=== PATIENT | female | born 1995 | race Caucasian/White ===

== ENCOUNTER 2022-12-15 10:00 | Inpatient (IN) | payer OTHER ==
[2022-12-15 11:29] VITALS: BMI 48.0
[2022-12-15] MEDS ORDERED: FENTANYL CITRATE/PF 50 MCG/ML VIAL ONE (12:19)
[2022-12-15] MEDS ORDERED: morphine SULFATE/PF 1 MG/2 ML (2cc Syringe - QUVA) ONE (12:19)
[2022-12-15] MEDS ORDERED: KETOROLAC TROMETHAMINE 30 MG/1 ML VIAL ONE (12:49)
[2022-12-15] MEDS ORDERED: ceFAZolin SODIUM 1 GM VIAL ONE (12:49)
[2022-12-15] MEDS ORDERED: ONDANSETRON 4 MG/2 ML VIAL ONE (12:49)
[2022-12-15] MEDS ORDERED: OXYTOCIN 10 UNITS/ML VIAL ONE (12:49)
[2022-12-15] MEDS ORDERED: OXYTOCIN 20 UNITS in 0.9% NS 20 UNIT/1,000 ML INFUS.BAG IV ONE (13:34)
[2022-12-15] MEDS ORDERED: ACETAMINOPHEN INJECTION 100 ML IVPB ONE (13:37)
[2022-12-15] MEDS ORDERED: oxyCODONE HCL 5 MG TABLET PO PRN (13:38)
[2022-12-15] MEDS ORDERED: ACETAMINOPHEN 1000 MG/100 ML BAG IVPB PRN (13:38)
[2022-12-15] MEDS ORDERED: IBUPROFEN 800 MG/8 ML IJ IVPB PRN (13:38)
[2022-12-15] MEDS ORDERED: ACETAMINOPHEN 325 MG TABLET (FP) PO PRN (13:38)
[2022-12-15] MEDS ORDERED: ONDANSETRON 4 MG/2 ML VIAL IVPB PRN (13:38)
[2022-12-15] MEDS ORDERED: morphine SULFATE/PF 1 MG/2 ML (2cc Syringe - QUVA) SPIN ONE (13:39)
[2022-12-15] MEDS ORDERED: ACETAMINOPHEN 1000 MG/100 ML BAG IVPB ONE (13:41)
[2022-12-15] MEDS ORDERED: OXYTOCIN 20 UNITS in 0.9% NS 20 UNIT/1,000 ML INFUS.BAG IV SCH (13:45)
[2022-12-15] MEDS ORDERED: ELECTROLYTE-148 SOLN 500 ML IV ONE (15:38)
[2022-12-15] MEDS ORDERED: CITRIC ACID/SODIUM CITRATE 30 ML UNIT-DOSE CUP PO ONE (15:38)
[2022-12-15] MEDS: CEFAZOLIN 2 GM in DEXTROSE 5%-WATER - 50 ML IVPB SCH (17:26)
[2022-12-15] MEDS: IBUPROFEN 600 MG TABLET (FP) PO PRN (21:25)
[2022-12-15] MEDS: SIMETHICONE 80 MG TAB.CHEW (FP) PO PRN (21:26)
[2022-12-16] MEDS: CEFAZOLIN 2 GM in DEXTROSE 5%-WATER - 50 ML IVPB SCH (02:13)
[2022-12-16 07:01] LABS: BASO % 0.4 % (0-2.0); EOS % 1.5 % (0-4.5); HEMATOCRIT 30.5 % (32.4-45.2); HEMOGLOBIN 10.7 GM/dL (10.7-15.3); LYMPH % 20.7 % (8-40); MCHC 35.1 g/dl (32.0-36.0); MEAN CELL VOLUME 76.9 fl (80-96); MEAN PLT VOLUME 8.2 fl (7.5-11.1); MONO % 6.2 % (3.8-10.2); NEUT % 71.2 % (42.8-82.8); PLATELET COUNT 212 10^3/uL (134-434); RBC 3.97 M/mm3 (3.60-5.2); RDW 14.9 % (11.6-15.6); WHITE BLOOD COUNT 12.4 K/mm3 (4.0-10.0)
[2022-12-16] MEDS: ENOXAPARIN NA (PORCINE) 40 MG/0.4 ML DISP.SYRIN SQ SCH (10:08)
[2022-12-16] MEDS: IBUPROFEN 600 MG TABLET (FP) PO PRN ×3 (10:08→21:01)
[2022-12-16] MEDS: SIMETHICONE 80 MG TAB.CHEW (FP) PO PRN ×2 (10:08→21:01)
[2022-12-16] MEDS: PRENATAL VITAMINS W/ FOLIC ACID TABLET (FP) PO SCH (10:08)
[2022-12-16] MEDS ORDERED: BISACODYL 10 MG SUPP.RECT RC PRN (13:39)
[2022-12-16] MEDS: SENNOSIDES/DOCUSATE COMBO (SENNA PLUS) TABLET (UD) PO PRN (21:39)
[2022-12-17] MEDS: IBUPROFEN 600 MG TABLET (FP) PO PRN ×4 (05:07→21:58)
[2022-12-17] MEDS: SIMETHICONE 80 MG TAB.CHEW (FP) PO PRN ×4 (05:07→21:57)
[2022-12-17] MEDS: PRENATAL VITAMINS W/ FOLIC ACID TABLET (FP) PO SCH (10:52)
[2022-12-17] MEDS: ENOXAPARIN NA (PORCINE) 40 MG/0.4 ML DISP.SYRIN SQ SCH (10:52)
[2022-12-17] MEDS: SENNOSIDES/DOCUSATE COMBO (SENNA PLUS) TABLET (UD) PO PRN (21:58)
[2022-12-18] MEDS: IBUPROFEN 600 MG TABLET (FP) PO PRN (04:56)
[2022-12-18] MEDS ORDERED: ACETAMINOPHEN 325 MG TABLET (FP) PO PRN (07:47)
[2022-12-18] MEDS ORDERED: oxyCODONE HCL 5 MG TABLET PO PRN (07:47)
[2022-12-18] MEDS: PRENATAL VITAMINS W/ FOLIC ACID TABLET (FP) PO SCH (11:20)
[2022-12-18] MEDS: ENOXAPARIN NA (PORCINE) 40 MG/0.4 ML DISP.SYRIN SQ SCH (11:20)
[2022-12-18 13:19] VITALS: BP 120/70; PULSE 92; RESP 17; TEMP 98.2
== END 2022-12-18 16:30 | disposition home or self-care (01) | DRG 540 ==
LOC: JLDR 10:00 → J3W 14:45
PROVIDERS: ADMIT Specialist; ATTEND Specialist
PROC: 10D00Z1 Extraction of Products of Conception, Low, Open Approach (ICD-10-PCS; principal; 2022-12-15)
DX: O32.2XX0 Maternal care for transverse and oblique lie, not applicable or unspecified (principal); O41.03X0 Oligohydramnios, third trimester, not applicable or unspecified; O99.213 Obesity complicating pregnancy, third trimester; Z3A.39 39 weeks gestation of pregnancy; Z37.0 Single live birth
CPT/HCPCS: 36415; 80053; 85025; 85027; 85610; 85730; 86780; 86850; 86900; 86901; 87389; 88307-TC; C9803-CS; U0003; U0005

== ENCOUNTER 2023-09-09 21:10 | Emergency (ER) | payer OTHER ==
[2023-09-09 21:16] VITALS: TEMP 98.2; BMI 40.6
[2023-09-09 21:52] LABS: HCG,QUALITATIVE URINE Positive
[2023-09-09] MEDS: ACETAMINOPHEN 1000 MG/100 ML BAG IVPB ONE (21:54)
[2023-09-09] MEDS ORDERED: ACETAMINOPHEN INJECTION 100 ML IVPB ONE (21:57)
[2023-09-09 22:25] LABS: URINE APPEARANCE TURBID; URINE COLOR RED
[2023-09-09 22:28] LABS: URINE RBC >200 /uL (0-23.9); URINE WBC 0-2 /uL (0-25.8)
[2023-09-09 22:29] LABS: EPI CELLS 0-5 /uL (0-25.1); URINE BACTERIA 0-5 /uL (0-1359)
[2023-09-09 22:44] LABS: BASO % 0.7 % (0-2.0); EOS % 3.1 % (0-4.5); HEMATOCRIT 39.1 % (32.4-45.2); LYMPH % 38.6 % (8-40); MCH 25.6 pg (25.7-33.7); MCHC 33.3 g/dl (32.0-36.0); MEAN CELL VOLUME 76.7 fl (80-96); MEAN PLT VOLUME 8.4 fl (7.5-11.1); MONO % 5.4 % (3.8-10.2); NEUT % 52.2 % (42.8-82.8); PLATELET COUNT 257 10^3/uL (134-434); RBC 5.09 M/mm3 (3.60-5.2); RDW 14.7 % (11.6-15.6); WHITE BLOOD COUNT 7.7 K/mm3 (4.0-10.0)
[2023-09-09 23:12] LABS: POTASSIUM 4.1 mmol/L (3.5-5.1)
[2023-09-09 23:14] LABS: ALBUMIN 3.2 g/dl (3.4-5.0); BLOOD UREA NITROGEN 9.8 mg/dL (7-18); CALCIUM 8.7 mg/dL (8.5-10.1)
[2023-09-09 23:17] LABS: CREATININE 0.7 mg/dL (0.55-1.3)
[2023-09-09 23:19] LABS: BILIRUBIN,TOTAL 0.3 mg/dL (0.2-1)
[2023-09-10] MEDS ORDERED: KETOROLAC TROMETHAMINE 15 MG/ML VIAL ONE (01:21)
[2023-09-10] MEDS: KETOROLAC TROMETHAMINE 15 MG/ML VIAL IVPUSH ONE (01:37)
[2023-09-10 01:46] VITALS: BP 114/72; PULSE 98; RESP 18
[2023-09-10] MEDS: METHYLERGONOVINE MALEATE 0.2 MG/1 ML AMP IM ONE (02:22)
== END 2023-09-10 03:40 | disposition home or self-care (01) ==
LOC: JER 21:10
PROC: 3E033NZ Introduction of Analgesics, Hypnotics, Sedatives into Peripheral Vein, Percutaneous Approach (ICD-10-PCS; principal; 2023-09-09)
PROC: 3E0333Z Introduction of Anti-inflammatory into Peripheral Vein, Percutaneous Approach (ICD-10-PCS; 2023-09-09)
PROC: 3E023GC Introduction of Other Therapeutic Substance into Muscle, Percutaneous Approach (ICD-10-PCS; 2023-09-09)
DX: O03.9 Complete or unspecified spontaneous abortion without complication (principal); R10.30 Lower abdominal pain, unspecified
CPT/HCPCS: 36415; 76817-TC; 80053; 81003; 84702; 84703; 85025; 86850; 86900; 86901; 87086; 99284-25; J0131